=== PATIENT | male | born 1975 | race Caucasian/White ===

== ENCOUNTER 2025-02-22 20:02 | Emergency (ER) | payer MEDICAID ==
[~2025-02-22] VITALS: Ht 180.3 cm; Wt 92.9 kg
[2025-02-22 20:12] VITALS: BP 148/83; PULSE 109; RESP 18; O2SAT 96
[2025-02-22] MEDS: hydrOXYzine 25 MG tablet PO ONE (20:48)
[2025-02-22 20:50] VITALS: TEMP 99
[2025-02-23] MEDS ORDERED: CHLO25CA10 PO (18:17)
[2025-02-23] MEDS ORDERED: LEVO112C5 PO (18:17)
[2025-02-23] MEDS ORDERED: HYDR-3686 PO (18:17)
[2025-02-23] MEDS ORDERED: BUPR1FIL3 SL (18:17)
[2025-02-24] MEDS ORDERED: BUPR1FIL3 SL (13:27)
== END 2025-02-22 20:54 | disposition home or self-care (01) ==
LOC: ER 20:03
DX: Z02.9 Encounter for administrative examinations, unspecified (principal)
CPT/HCPCS: 99283; Q0177

== ENCOUNTER 2025-02-23 18:05 | Emergency (ER) | payer MEDICAID ==
[~2025-02-23] VITALS: Ht 180.3 cm; Wt 93.1 kg
[2025-02-23 18:07] VITALS: BP 148/93; PULSE 98; RESP 16; TEMP 98.4; O2SAT 98
[2025-02-23] MEDS ORDERED: CHLO25CA10 PO (18:17)
[2025-02-23] MEDS ORDERED: HYDR-3686 PO (18:17)
[2025-02-23] MEDS ORDERED: LEVO112C5 PO (18:17)
[2025-02-23] MEDS ORDERED: BUPR1FIL3 SL (18:17)
[2025-02-23] MEDS: buprenorphine/naloxone 8MG-2MG SUBlingual film SL STA (19:10)
[2025-02-24] MEDS ORDERED: BUPR1FIL3 SL (13:27)
== END 2025-02-23 19:18 | disposition home or self-care (01) ==
LOC: ER 18:06
DX: Z76.0 Encounter for issue of repeat prescription (principal); Z00.8 Encounter for other general examination
CPT/HCPCS: 99283